=== PATIENT | female | born 1945 | race Caucasian/White ===

== ENCOUNTER → 2020-05-02 15:33 | Outpatient (REF) | payer MEDICARE, SELFPAY | LOC: ANHLAB 15:33 | PROVIDERS: Visit Provider Nurse Practitioner | DX: C44.722 Squamous cell carcinoma of skin of right lower limb, including hip (principal) | CPT/HCPCS: 88305 ==

== ENCOUNTER → 2020-05-29 08:35 | Outpatient (REF) | payer MEDICARE, SELFPAY | LOC: ANHLAB 08:35 | PROVIDERS: Visit Provider Nurse Practitioner | DX: C44.722 Squamous cell carcinoma of skin of right lower limb, including hip (principal) | CPT/HCPCS: 88305; 88331 ==

== ENCOUNTER → 2021-03-27 13:12 | Outpatient (REF) | payer MEDICARE, SELFPAY | LOC: ANHLAB 13:12 | PROVIDERS: Visit Provider Nurse Practitioner | DX: D49.2 Neoplasm of unspecified behavior of bone, soft tissue, and skin (principal) | CPT/HCPCS: 88305 ==

== ENCOUNTER 2023-09-15 07:00 | Outpatient (NON) | payer MEDICARE, SELFPAY | END 2023-09-15 07:01 | disposition home or self-care (01) | LOC: ANHLAB 09-17 14:30 | PROVIDERS: Visit Provider Nurse Practitioner | DX: C44.622 Squamous cell carcinoma of skin of right upper limb, including shoulder (principal); L81.4 Other melanin hyperpigmentation | CPT/HCPCS: 88305 ==

== ENCOUNTER 2025-07-11 11:30 | Outpatient (NON) | payer MEDICARE, SELFPAY ==
--- NOTE | 2025-07-11 | S_PTH ---
PATIENT: Larissa Arguelles LOC: [facility] U#:[id number] AGE/SX: 79/F ROOM: RE07/11/[address]: David Arguelles MD : 1945 BED: DIS: 07/11/2025 SPEC #: [id number] RECD: 07/11/25 11:43 STATUS: ANGELA REQ #: [id number] IRENA: 07/11/25 00:[address]: David Arguelles DEPT: [facility] Surgical RECD BY: Maggi Omalley Tissues: A - Melanoma Procedures: Hematoxylin and Eosin Stain Gross and Microscopic Level 4
--- OUTSIDE RECORDS SUMMARY | 2025-07-11 13:05 | XMS_ITS | Clinical Summary ---
Author Organization [facility] Address [address] [place] [address] Care Team Providers Care Tying In Machine Operator Name Role Phone Unavailable Primary Care Provider Unavailabl e Social History Tobacco Use Types Packs/Day Years Used Date Smoking Tobacco: Never Assessed Comments Unknown Sex and Gender Information Value Date Recorded Sex Assigned at Not on file Legal Sex Female 4:42 PM CDT Gender Identity Not on file Sexual Orientation Not on file Plan of Treatment Health Maintenance Due Date Last Done Comments Hepatitis C 1963 DTaP, Tdap and Td Vaccines ( 1 - Tdap) 1964 Pneumococcal Vaccine: 50+ Ye ars (1 of 1 - PCV) 1995 Zoster Vaccines (1 of 2) 1995 Dexa Scan (General) 2010 RSV Immunization or 60+ Years (1 - 1-dose 75+ series) 2020 COVID-19 Vaccine (2024-2 6 season) 2025 Influenza Adult (#1) 2025 Hepatitis A Vaccines Aged Out No long er eligible based on patient's age to complete this topic Meningococcal B Vaccine Aged Out No l onger eligible based on patient's age to complete this topic Meningococcal Vaccine Aged Out No krish vadim eligible based on patient's age to complete this topic RSV Immunizations Under 20 Months Aged Out No longer eligible based on patient's age to complete this topic
--- OUTSIDE RECORDS SUMMARY | 2025-07-11 13:05 | XMS_ITS | Clinical Summary ---
Author Organization [facility] Address [address] [place] [address] Care Team Providers Care Clinical Education Coordinator Name Role Phone aNdirDavid christiansen MD Primary Care Provider [phone] Darryl Guerra MD Unavailable [phone] Betsy Delgado MD Unavailable [phone] Allergies Active Allergy Reactions Criticality Noted Date Comments Metronidazole Itching Low 04/29/2018 Other Other (See comments) Low 11/09/2018 Pt states does she does not tolerate steroids - causes bloating, swelling and stiffness Prednisone Joint pain Low 03/02/2020 Medications letrozole (FEMARA) 2.5 mg tabletIndication s:estrogen veronica Take 2.5 mg by mouth every morning 5 08/24/[address] (NexIUM) 40 mg capsuleIndicatio ns:Stress Ulcer Prophylaxis Take 40 mg by mouth every morning Active Lactobac no.41/Bifidobact no.7 (PROBIOTIC-10 ORAL) Take 1 capsule by mouth every morning Active lisinopril-hydro CHLOROthiazide (ZESTORETIC) 20-25 mg per tabletIndication s:hypertension Take 1 tablet by mouth nightly 05/24/2019 Active rosuvastatin (CRESTOR) 5 mg tablet Take 5 mg by mouth daily 09/25/2021 Active Active Problems Problem Noted Date Diagnosed Date Adenoma of colon 11/10/2018 Overview (11/10/2018): Added automatically from request for surgery [id number] Benign colon polyp 09/14/2018 Overview (09/14/2018): Added automatically from request for surgery [id number] Acute postoperative pain of abdomen S/P laparoscopic colectomy Resolved Problems Problem Noted Date Diagnosed Date Resolved Date Incisional hernia, without o bstruction or gangrene 06/05/2020 12/08/2021 Overview (06/05/2020): Added automatically from request for surgery [id number] Surgical History Surgery Date Site/Laterality Comments CHOLECYSTECTOMY 09/08/2014 - 09/07/2015 laparoscopically COLONOSCOPY 09/08/2017 - 09/07/2018 unamenable endoscopic mucosal resection (x2) SKIN CANCER EXCISION HYSTERECTOMY 09/08/2004 - 09/07/2005 BLADDER SUSPENSION 09/08/2004 - 09/07/2005 MASTECTOMY, PARTIAL 09/08/2014 - 09/07/2015 Right partial COLON SURGERY 09/08/2018 - 09/07/2019 Lap FACIAL COSMETIC SURGERY 09/08/2012 - 09/07/2013 HERNIA REPAIR 09/2017; 01/2018 ventral w/ mesh APPENDECTOMY 12/07/2018 - 01/05/2019 INCISIONAL HERNIA REPAIR 07/25/2020 Robotic repair Medical History Medical History Date Comments Breast cancer, right (HCC) 2014 s/p p artial mastectomy, xrt; continues letrozole HTN (hypertension) GERD (gastroesophageal reflux disease) Dyslipidemia History of colon polyps History of therapeutic radiation 12/2014 Tubular adenoma of the ileocecal valve Diverticulosis SCCA (squamous cell carcinoma) of skin Basal cell carcinoma (BCC) Atherosclerosis 04/29/2018 of aorta, mod to severe (CT abd/pelvis- OSH- 04/29/18) Colorectal polyps Recurrent incisional hernia Family History Medical History Relation Name Comments Colon polyps Brother Colon cancer Father's Sister Heart attack Mother fatal- pt state s it was r/t an infection Relation Name Status Comments Brother Father's Sister Mother Social History Tobacco Use Types Packs/Day Years Used Date Smoking Tobacco: Former Cigarettes 1 48 1 964 - 2012 Smokeless Tobacco: Never Alcohol Use Standard Drinks/Week Comments Yes 8 (1 standard drink = 0.6 oz pur e alcohol) Comments No Sex and Gender Information Value Date Recorded Sex Assigned at Not on file Legal Sex Female 2:59 AM DRAWER IN JACQUARD LOOM Gender Identity Not on file Sexual Orientation Not on file Last Filed Vital Signs Vital Sign Reading Time Taken Comments Blood Pressure 143/83 09/15/2020 11:00 AM DRAWER IN JACQUARD LOOM Pulse 67 09/15/2020 11:00 AM DRAWER IN JACQUARD LOOM Temperature 35.6 C (96.1 F) 09/15/2020 11:00 AM DRAWER IN JACQUARD LOOM Respiratory Rate 16 07/27/2020 3:11 PM DRAWER IN JACQUARD LOOM Oxygen Saturation 94% 07/27/2020 3:11 PM DRAWER IN JACQUARD LOOM Inhaled Oxygen Concentration - - Weight 69 kg (152 lb 3.2 oz) 09/15/2020 11:00 AM DRAWER IN JACQUARD LOOM Height 154.9 cm (5' 1) 09/15/2020 11:00 AM DRAWER IN JACQUARD LOOM Body Mass Index 28.76 09/15/2020 11:00 AM DRAWER IN JACQUARD LOOM Plan of Treatment Not on file Medical Devices Implanted Type Area Supervisor Paper Products Device Identifier Shelf Expiration Date Model / Serial / Lot [employer]/C R Bard [id number] Ventralight St Sepra Echo Ps 8x6in Monofilament Absorbable Low Latex Free - [id number] Implanted:Qty: 1 on 07/25/2020 by Ellis Sparks MD at [facility] Mesh N/A: Abdomen [employer]/C R Bard 03/05/2022 [id number] / / [id number] Tooth Mouth Insurance [facility] MEDICARE ADVANTAGE [facility] MEDIC[facility] Address: [address] [address] [place] [address] [facility] MEDICARE ADVANTAGE [facility]IC[facility] Address: [address] [address] [place] [address] Advance Directives For more information, please contact: [phone] * Full Code (Latest Code Status on File) Date Activated Date Inactivated Comments 07/25/2020 12:49 PM 07/27/2020 8:38 PM * Full Code Date Activated Date Inactivated Comments 12/10/2018 9:13 PM 12/12/2018 4:43 PM * Full Code Date Activated Date Inactivated Comments 10/01/2018 8:14 AM 10/01/2018 2:53 PM Care Teams Clinical Education Coordinator Relationship Specialty Start Date End Date David Arguelles MD [address] [place] [address] [address] [place] [address] PCP - General Plastic Surgery 01/08/19 Darryl Guerra MD [address] [place] [address] [place] [address] [place] [address] Referring Physician Gastroenterology 01/08/19 Betsy Delgado MD [address] [place] [address] [place] [address] [place] [address] Cloth Pattern Maker Gastroenterology 01/08/19
--- OUTSIDE RECORDS SUMMARY | 2025-07-11 13:05 | XMS_ITS | Encounter Summary ---
Author Organization [facility] Address [address] [place] [address] Care Team Providers Care Nut Grader Name Role Phone Ovidio Rosas MD Primary Care Provider [phone] Encounter Details Date Type Department Care Team (Late st Contact Info) Description 06/20/2025 Results Follow-Up [facility] [address] [place] [address] [place] [address] Jasmyn Andre LPN MAMMO SCREENING BILATERAL - DIGITAL W MG Social History Tobacco Use Types Packs/Day Years Used Date Smoking Tobacco: Former Cigarettes 0 Q uit: 2014 Passive Smoke Exposure: Past Smokeless Tobacco: Never Alcohol Use Standard Drinks/Week Comments Never 0 (1 standard drink = 0.6 oz pur e alcohol) [facility] Utilities Answer Date Recorded In the past 12 months has e [employer], gas, oil, or water [employer] threatened to shut off services in your home? No 08/17/2024 Humiliation, Afraid, Rape, and Kick questionnair e Answer Date Recorded Within the last year, have y ou been afraid of your partner or ex-partner? No 08/17/2024 Within the last year, have y ou been humiliated or emotionally abused in other ways by your partner or ex-partner? No Within the last year, have y ou been kicked, hit, slapped, or otherwise physically hurt by your partner or ex-partner? No 08/17/2024 Within the last year, have y ou been raped or forced to have any kind of sexual activity by your partner or ex-partner? No 08/17/2024 Hunger Vital Sign Answer Date Recorded Within the past 12 months, y ou worried that your food would run out before you got the money to buy more. Never true 08/17/20 24 Within the past 12 months, t he food you bought just didn't last and you didn't have money to get more. Never true 08/17/2024 PRAPARE - Transportation Answer Date Re corded In the past 12 months, has l ack of transportation kept you from medical appointments or from getting medications? No 08/08 In the past 12 months, has l ack of transportation kept you from meetings, work, or from getting things needed for daily living? No 08/17/2024 Housing Stability Vital Sign Answer Ehrber e Recorded In the last 12 months, was t here a time when you were not able to pay the mortgage or rent on time? No 08/17/2024 Number of Times Moved in the Last Year Not on fi le 08/17/2024 At any time in the past 12 m [facility], were you homeless or living in a skilled nursing (including now)? No 08/17/2024 Alcohol Use Answer Date Recorded Frequency of Alcohol Consumption Not on file 05/19/2024 Average Number of Drinks Not on file 024 Frequency of Binge Drinking Not on file 05/09 Alcohol Use Status Never 05/19/2024 Average alcohol consumption Not on file 05/09 Comments No Sex and Gender Information Value Date Recorded Sex Assigned at Female 08/31/2024 2:54 PM SUPERVISOR SALVAGE Legal Sex Female 9:20 AM CDT Gender Identity Female 08/31/2024 2:54 PM SUPERVISOR SALVAGE Sexual Orientation Not on file documented as of this encounter Functional Status * Are you deaf or do you have serious difficulty hearing? Answer Date of Assessment Author No 08/17/2024 12:57 PM Patricia Wilkins RN * Are you blind or do you have serious difficulty seeing, even when wearing glasses? Answer Date of Assessment Author No 08/17/2024 12:57 PM Patricia Wilkins RN * Do you have serious difficulty walking or climbing stairs? Answer Date of Assessment Author No 08/17/2024 12:57 PM Ptaricia Wilkins RN * Do you have difficulty dressing or bathing? Answer Date of Assessment Author No 08/17/2024 12:57 PM Patricia Wilkins RN * Because of a physical, mental, or emotional condition, do you have difficulty doing errands alone such as visiting a doctor's office or shopping? Answer Date of Assessment Author No 08/17/2024 12:57 PM Patricia Wilkins RN documented as of this encounter Mental Status * Because of a physical, mental, or emotional condition, do you have serious difficulty concentrating, remembering, or making decisions? Answer Entry Date Author No 08/17/2024 12:57 PM Patricia Wilkins RN documented in this encounter Plan of Treatment Upcoming Encounters Date Type Department Care Team (Late st Contact Info) Description 08/10/2025 2:30 PM SUPERVISOR SALVAGE Office Visit [address] [address] Ovidio Rosas MD [address] [place] [address] documented as of this encounter Visit Diagnoses Not on filedocumented in this encounter Care Teams Nut Grader Relationship Specialty Start Date End Date Ovidio Rosas MD [address] [place] [address] PCP - General Family Medicine 06/04/24 documented as of this encounter
--- OUTSIDE RECORDS SUMMARY | 2025-07-11 13:05 | XMS_ITS | Encounter Summary ---
Author Organization [facility]. Address [facility] [facility] [place] [address] Care Team Providers Care Ladle Pourer Name Role Phone Non Staff, Physician Primary Care Provider Unava ilable Reason for Referral * Radiology Services (Routine) - Closed Specialty Diagnoses / Procedures Referred By Tuyet t Referred To Contact Radiology Diagnoses Malignant neoplasm of breast (female), unspecified site Procedures NM L[place]MPHOSCINT [place] [address] Phone: tel: fax: [address] [place] [address] Phone: tel: Referral ID Status Reason Start Date Expiration Date Visits Re quested Visits Authorized [id number] Closed 11/01/2014 11/01/2015 1 1 Encounter Details Date Type Department Care Team (Late st Contact Info) Description 11/01/2014 Transcribe Orders Outpatient Scheduling [place] [address] Dina Holly, Pipe Smoking Machine Operator Malignant neoplasm of breast (female), unspecified site (Primary Dx) Social History Tobacco Use Types Packs/Day Years Used Date Smoking Tobacco: Former Cigarettes 1 30 0 10/28/1976 - 10/28/2006 Alcohol Use Standard Drinks/Week Comments Yes 0 (1 standard drink = 0.6 oz pur e alcohol) glass wine nightly Comments Unknown Sex and Gender Information Value Date Recorded Sex Assigned at Not on file Legal Sex Female 3:52 PM EDT Gender Identity Not on file Sexual Orientation Not on file documented as of this encounter Functional Status * Is the patient deaf or have serious difficulty hearing? Answer Date of Assessment Author No 10/28/2014 11:29 AM EST Josie WoodrowCori D * Is the patient blind or have serious difficulty seeing even when wearing glasses? Answer Date of Assessment Author No 10/28/2014 11:29 AM EST Josie Cori D * Does the patient have serious difficulty concentrating, remembering, or making decisions? Answer Date of Assessment Author No 10/28/2014 11:29 AM EST Zoie Galindoe D * Does the patient have serious difficulty walking or climbing stairs? Answer Date of Assessment Author No 10/28/2014 11:29 AM EST Zoie Galindoe D * Does the patient have difficulty dressing or bathing? Answer Date of Assessment Author No 10/28/2014 11:29 AM EST Josie Cori D documented as of this encounter Mental Status * Does the patient have difficulty doing errands alone? Answer Entry Date Author No 10/28/2014 11:29 AM Cori Baker documented in this encounter Plan of Treatment Not on file documented as of this encounter Results * NM LYMPHOSCINT WITHOUT IMAGING (11/03/2014 11:09 AM EST) Anatomical Region Laterality Modality Nuclear Medicine 11/03/2014 11:0 9 AM EST Narrative 11/03/2014 1:09 PM EST Order Number: [id number] Ordering Provider: AYANNA LOWE Date of Exam: Nov 03 2014 11:09AM COMMENTS: EXAMINATION: LYMPHOSCINT W/O IMAGING CLINICAL HISTORY: Breast carcinoma. TECHNIQUE: Right breast lymphoscintigraphy. RESULTS: 500 microcuries of technetium-99m filtered sulfur colloid injected into the right breast by Dr. Lowe. No images were obtained. IMPRESSION: Right breast lymphoscintigraphy performed without imaging. Name: NEREIDA ARGUELLES MR#: [id number] : 1945 Sex: F Dictating Physician: JOHN SIMEON MD Electronically Signed: Nov 03 2014 1:07PM Dictated: Nov 03 2014 11:09AM Transcribed: Q23 on Nov 03 2014 11:40AM us Ayanna SAPP ORDERABLES Final Result documented in this encounter Visit Diagnoses Diagnosis Malignant neoplasm of breast (female), unspecified site- Primary Malignant neoplasm of breast (female), unspecified site documented in this encounter Care Teams Ladle Pourer Relationship Specialty Start Date End Date Non Staff, Physician PCP - General 09/22/09 documented as of this encounter
--- OUTSIDE RECORDS SUMMARY | 2025-07-11 13:05 | XMS_ITS | Clinical Summary ---
Author Organization [facility]. Address [address] [facility] [place] [address] Care Team Providers Care Pump Servicer Name Role Phone Non Staff, Physician Primary Care Provider Unava ilable Allergies No known active allergies Medications alendronate (FOSAMAX) 70 MG tablet Take 70 mg by mouth once a week. Take 30 minutes before first food/drink/m edication, avoid lying down for 30 minutes Active esomeprazole (NEXIUM) 40 MG capsule Take 40 mg by mouth daily. Active atorvastatin (LIPITOR) 10 MG tablet Take 10 mg by mouth daily. Active losartan-hydroc hlorothiazide (HYZAAR) 100-12.5 MG per tablet Take 1 Tab by mouth daily. Active difluprednate (DUREZOL) 0.05 % Emulsion 1 Drop 4 times daily. To right eye Active hydrocodone-blaise taminophen (NORCO, LORTAB, VICODIN) 5-325 MG per tablet Take 1-2 Tabs by mouth every 6 hours as needed for Pain. 30 Tab 0 11/03/2014 Active Active Problems Problem Noted Date Diagnosed Date Malignant neoplasm of breast (female), unspecifi ed site 11/03/2014 Overview (03/26/2015): March 2015 IMO Update Social History Tobacco Use Types Packs/Day Years [...] Sign Reading Time Taken Comments Blood Pressure 153/65 11/03/2014 1:45 PM EST Pulse 55 11/03/2014 1:45 PM EST Temperature 36.2 C (97.1 F) 11/03/2014 12:01 PM EST Respiratory Rate 14 11/03/2014 1:45 PM EST Oxygen Saturation 99% 11/03/2014 1:45 PM EST Inhaled Oxygen Concentration - - Weight 62.6 kg (138 lb 0.1 oz) 11/03/2014 8:01 A M EST Height 156.2 cm (5' 1.5) 10/28/2014 11:31 AM ES T Body Mass Index 25.65 10/28/2014 11:31 AM EST Plan of Treatment Health Maintenance Due Date Last Done Comments HEP C 1963 MEDICARE WELLNESS EXAM 1963 PNEUMOCOCCAL (50y+) (1 of 1 - PCV) 1995 ZOSTER (SHINGLES) (1 of 2) 1995 DEXA SCREENING 2010 TETANUS/DIPHTHERIA 2010 RSV Immunization - age 60 ye ars and older or (1 - 1-dose 75+ series) 2020 INFLUENZA (#1) 2025 COVID-19 Vaccine ( - 2023-2 5 season) 2025 HEP B Aged Out No longer eligi ble based on patient's age to complete this topic MEN B Vaccine Aged Out No longer elig ible based on patient's age to complete this topic RSV Immunization < 20 months Aged Out No longer eligible based on patient's age to complete this topic Insurance [facility] [place] [place] [address] Care Teams Pump Servicer Relationship Specialty Start Date End Date Non Staff, Physician PCP - General 09/22/09
--- OUTSIDE RECORDS SUMMARY | 2025-07-11 13:05 | XMS_ITS | Encounter Summary ---
Author Organization [facility]. Address [address] [facility] [place] [address] Care Team Providers Care Business Process Analyst Name Role Phone Non Staff, Physician Primary Care Provider Unava ilable Reason for Referral * Breast Health Services (Routine) - Closed Specialty Diagnoses / Procedures Referred By Contac t Referred To Contact Diagnoses Malignant neoplasm of breast (female), unspecified site Procedures MA MAMMO US GUIDED LOC W/DEVICE [facility] [address] [place] [address] Phone: tel: fax: Referral ID Status Reason Start Date Expiration Date Visits Re quested Visits Authorized [id number] Closed 11/02/2014 11/02/2015 1 1 Encounter Details Date Type Department Care Team (Late st Contact Info) Description 11/02/2014 Transcribe Orders [facility] [place] [address] Marilee Lowe M.D. [id number] [place] [id number] Malignant neoplasm of breast (female), unspecified site [...] of Assessment Author No 10/28/2014 11:29 AM Cori Baker * Is the patient blind or have serious difficulty seeing even when wearing glasses? Answer Date of Assessment Author No 10/28/2014 11:29 AM Cori Baker * Does the patient have serious difficulty concentrating, remembering, or making decisions? Answer Date of Assessment Author No 10/28/2014 11:29 AM Cori Baker * Does the patient have serious difficulty walking or climbing stairs? Answer Date of Assessment Author No 10/28/2014 11:29 AM Cori Baker * Does the patient have difficulty dressing or bathing? Answer Date of Assessment Author No 10/28/2014 11:29 AM Cori Baker documented as of this encounter Mental Status * Does the patient have difficulty doing errands alone? Answer Entry Date Author No 10/28/2014 11:29 AM Cori Baker documented in this encounter Plan of Treatment Not on file documented as of this encounter Visit Diagnoses Diagnosis Malignant neoplasm of breast (female), unspecified site- Primary documented in this encounter Care Teams Business Process Analyst Relationship Specialty Start Date End Date Non Staff, Physician PCP - General 09/22/09 documented as of this encounter
--- OUTSIDE RECORDS SUMMARY | 2025-07-11 13:05 | XMS_ITS | Clinical Summary ---
Author Organization [facility] Address [address] [place] [address] Care Team Providers Care Decay Control Operator Name Role Phone Ovidio Rosas MD Primary Care Provider [phone] Allergies Active Allergy Reactions Criticality Noted Date Comments Atorvastatin Other/Unknown (See Comments) 12/04/2020 Leg pain Metronidazole Other/Unknown (See Comments) 04/29/2018 Prednisone Arthralgia Low 03/02/2020 Swelling, bloating Medications albuterol (PROAIR HFA) 108 (90 Base) MCG/ACT inhaler Inhale 2 puffs by mouth every 6 (six) hours if needed for Wheezing Active Multiple Vitamins-Minerals (WOMENS MULTI PO) Take Ac tive Probiotic Product (PROBIOTIC DAILY PO) Take 1 tablet by mouth daily Active fluticasone-umecl idin-vilant (TRELEGY ELLIPTA) 200-62.5-25 MCG/ACT inhalerIndication s:Chronic allergic bronchitis Inhale 1 puff by mouth daily 90 each 3 12/10/19 25 026 Active lisinopril-hydroc hlorothiazide (PRINZIDE, ZESTORETIC) 20-25 MG per tabletIndications :Essential (primary) hypertension Take 1 tablet by mouth daily 90 tablet 3 12/16/19 25 026 Active esomeprazole (NEXIUM) 40 MG capsuleIndication s:Gastroesophagea l reflux disease, unspecified whether esophagitis present Take 1 capsule (40 mg) by mouth every morning (before breakfast) 90 capsule 1 04/18/20 25 026 Active tirzepatide (MOUNJARO) 2.5 MG/0.5ML penIndications:Pr ediabetes,Impaire d fasting blood sugar Inject 0.5 mL (2.5 mg) into the skin once a week for 30 days 2 mL 06/15/20 25 025 Active rosuvastatin (CRESTOR) 5 MG tabletIndications :Mixed Hyperlipidemia Take 1 tablet (5 mg) by mouth at bedtime Indications: Elevation of Both Cholesterol and Triglycerides in Blood 90 tablet 3 07/08/20 24 025 tirzepatide (MOUNJARO) 2.5 MG/0.5ML penIndications:Pr ediabetes,Impaire d fasting blood sugar Inject 0.5 mL (2.5 mg) into the skin once a week 2 mL 2 03/30/20 25 025 Discontin ued(Reord er) diclofenac (VOLTAREN) 75 MG EC tabletIndications :Acute pain of left shoulder Take 1 tablet (75 mg) by mouth 2 times daily for 14 days 28 tablet 06/02/20 25 025 Active Problems Problem Noted Date Diagnosed Date Angina pectoris 08/17/2024 Benign essential hypertension 05/19/2024 GERD (gastroesophageal reflux disease) 4 PAD (peripheral artery disease) 05/19/2024 Resolved Problems Problem Noted Date Diagnosed Date Resolved Date Soft tissue fullness of cheeks 02/01/2025 03/15/2025 Angina pectoris 07/28/2024 08/09/2024 Chronic bronchitis 05/19/2024 4 Viral syndrome 05/19/2024 05/19/2024 Exertional dyspnea 05/19/2024 4 Atypical chest pain 05/19/2024 07/05/20 24 Lower extremity edema 05/19/20242023 Hx of tobacco use, presentin g hazards to health 05/19/2024 08/09/2024 Encounters Date Type Department Care Team Description 06/20/2025 11:24 AM CDT - 06/20/2025 11:59 PM CDT Hospital Encounter [facility] [address] [place] [phone] Ovidio Rosas MD Encounter for screening mammogram for malignant neoplasm of breast Discharge Disposition: Home 06/20/2025 Results Follow-Up [address] [phone] Jasmyn Andre LPN MAMMO SCREENING BILATERAL - DIGITAL W MG 06/15/2025 1:15 PM CDT Office Visit [address] [phone] Ovidio Rosas MD Acute pain of left shoulder (Primary Dx); BMI 30.0-30.9,adult; Prediabetes; Impaired fasting blood sugar 06/08/[address] [phone] Ovidio Rosas MD Other 06/02/2025 11:00 AM CDT Office Visit [address] [phone] Mukund Coats NP Acute pain of left shoulder (Primary Dx) 04/18/[address] [phone] Ovidio Rosas MD Medication Refill 04/18/[address] [phone] Ovidio Rosas MD Medication Refill from Last 3 Months Immunizations Immunization Administration Dates Next Due Covid-19, Moderna, 12+, LNP-S, PF 50 mcg/0.5mL 0 10/25/2020,09/27/2020 Influenza =>65yo, High Dose, Preservative Free 1 Influenza =>65yo, High Dose, Quadrivalent 2020,07/04/2020 Influenza, Trivalent (IIV3-HD) Adjuv, Pres Free 08/27/2018 Pneumococcal Polysaccharide PPV23 09/18/2021 Tdap 08/08/2021,08/22/2020 pneumococcal Conjugate PCV13 07/15/2020 Family History Medical History Relation Name Comments Heart Disease Father Hypertension Father Breast Cancer Maternal Aunt Breast Cancer Maternal Grandmother Breast Cancer Mother Breast Cancer Sister 1 Hypertension Sister 1 Other (See Comments) Sister 1 Sarcoid osis Breast Cancer Sister 2 Relation Name Status Comments Father Maternal Aunt Maternal Grandmother Mother Sister 1 Sister 2 Alive Social History Tobacco Use Types Packs/Day Years Used Date Smoking Tobacco: Former Cigarettes 0 Q uit: 2013 Passive Smoke Exposure: Past Smokeless Tobacco: Never Tobacco Cessation:Counseling Given: Yes Alcohol Use Standard Drinks/Week Comments Never 0 (1 standard drink = 0.6 oz pur e alcohol) [facility] [employer] [place] [employer] Answer Date Recorded In the past 12 months has e [employer], gas, oil, or water [employer] threatened to shut off services in your [...] No 08/17/2024 Housing Stability Vital Sign Answer [place] e Recorded In the last 12 months, was t here a time when you were not able to pay the mortgage or rent on time? No 08/17/2024 Number of Times Moved in the Last Year Not on fi le 08/17/2024 At any time in the past 12 m [facility], were you homeless or living in a penitentiary (including now)? No 08/17/2024 Alcohol Use Answer Date Recorded Frequency of Alcohol Consumption Not on file 05/19/2024 Average Number of Drinks Not on file 024 Frequency of Binge Drinking Not on file 05/09 Alcohol Use Status Never 05/19/2024 Average alcohol consumption Not on file 05/09 Comments No Sex and Gender Information Value Date Recorded Sex Assigned at Female 08/31/2024 2:54 PM MACHINING TECHNICIAN Legal Sex Female 9:20 AM CDT Gender Identity Female 08/31/2024 2:54 PM MACHINING TECHNICIAN Sexual Orientation Not on file Last Filed Vital Signs Vital Sign Reading Time Taken Comments Blood Pressure 138/72 06/15/2025 1:05 PM CDT Pulse 67 06/15/2025 1:05 PM CDT Temperature 36.3 C (97.4 F) 08/27/2024 7:34 PM MACHINING TECHNICIAN Respiratory Rate 16 06/15/2025 1:05 PM CDT Oxygen Saturation 98% 06/15/2025 1:05 PM CDT Inhaled Oxygen Concentration - - Weight 72.6 kg (160 lb) 06/15/2025 1:05 PM CDT Height 154.9 cm (5' 1) 06/15/2025 1:05 PM CDT Body Mass Index 30.23 06/15/2025 1:05 PM CDT Plan of Treatment Upcoming Encounters Date Type Department Care Team (Late st Contact Info) Description 08/10/2025 2:30 PM MACHINING TECHNICIAN Office Visit [address] [place] [address] [place] [phone] Ovidio Rosas MD [address] [place] [address] [place] [address] Health Maintenance Due Date Last Done Comments Hepatitis C Screening ages 18 to 79 once 1945 DEPRESSION SCREENING 1957 Zoster Vaccine (Recombinant Vaccine) (1 of 2) 1995 RSV Vaccines (1 - 1-dose 75+ series) 2020 Influenza Vaccine 04/08/2025 07/19/2021, , 06/21/2019, Additional history exists LIPID TESTING 06/04/2025 06/04/2024 Medicare Annual Wellness (AWV) 08/09/2025 08/09/2024 BMI Above/Below Normal Parameters 06/15/2026 06/15/2025, 06/15/2025, 06/02/2025, Additional history exists Fall Risk Assessment 06/15/2026 06/15/2025, 03/15/2025, 09/27/2024, Additional history exists BREAST CANCER SCREENING 06/20/2026 06/20/20, 06/15/2024, 06/05/2023, Additional history exists ADULT TETANUS 08/08/2031 08/08/2021, 08/22/2020 DEXA SCAN SCREENING Completed 06/08/2019 COVID-19 Immunization Discontinued 10/25/2020, 021 Pneumococcal Vaccine: 50 and over Completed 09/18/2021, 07/15/2020 HEPATITIS A VACCINES Aged Out No long er eligible based on patient's age to complete this topic HEPATITIS B VACCINES Aged Out No long er eligible based on patient's age to complete this topic HIB VACCINES Aged Out No longer eligi ble based on patient's age to complete this topic HPV VACCINES Aged Out No longer eligi ble based on patient's age to complete this topic IPV VACCINES Aged Out No longer eligi ble based on patient's age to complete this topic MENINGOCOCCAL VACCINE Aged Out No krish vadim eligible based on patient's age to complete this topic Meningococcal B Vaccine Aged Out No l onger eligible based on patient's age to complete this topic ROTAVIRUS VACCINES Aged Out No longer eligible based on patient's age to complete this topic Procedures Procedure Name Priority Date/Time Associated Diagnosis Comments MAMMO SCREENING BILATERAL - DIGITAL W MG Routine 06/20/2025 12:08 PM CDT Encounter for screening mammogram for malignant neoplasm of breast LIPID PROFILE Routine 06/04/2024 2:09 PM CDT Anemia of infection and chronic disease Hypertension, unspecified type from Last 3 Months or Most Recently Relevant to Health Maintenance Results * MAMMO SCREENING BILATERAL - DIGITAL W MG (06/20/2025 12:08 PM CDT) Anatomical Region Laterality Modality Breast Bilateral Mammography 06/20/2025 11:4 0 AM CDT Impressions 06/20/2025 3:42 PM CDT IMPRESSION: Screening mammography negative for suspicious abnormality. ACR BI-RADS- 2 - Benign findings. RECOMMENDATION: In the absence of physical exam or breast symptomatology warranting earlier evaluation, advise continued annual screening mammography with next exam in 12 months. Electronically signed by: Ebenezer Luis MD 06/20/2025 03:42 PM CDT RP Narrative 06/20/2025 3:42 PM CDT BILATERAL FULL-FIELD DIGITAL SCREENING MAMMOGRAPHY WITH COMPUTER AIDED DETECTION CLINICAL HISTORY: 79-year-old with personal history of breast cancer presents without complaint for screening mammogram. COMPARISON: June 15, 2024 and earlier. [employer] Mult[employer] Version 7.2 was used as an aid in the interpretation of this mammogram. Breast Composition: There are scattered areas of fibroglandular density. FINDINGS: No discernible suspicious mass, suspicious-morphology calcifications, or architectural distortion. Surgical clips and an oil cyst in the right breast. Benign appearing calcifications bilaterally. Allowing for differences in technique and positioning, there are no suspicious interval changes by routine screening mammographic technique. Procedure Note Ebenezer Luis MD - 06/20/2025 BILATERAL FULL-FIELD DIGITAL SCREENING MAMMOGRAPHY WITH COMPUTER AIDEDDETECTION CLINICAL HISTORY: 79-year-old with personal history of breast cancerpresents without complaint for screening mammogram. COMPARISON: June 15, 2024 and earlier. [employer] Mult[employer] Version 7.2 was used as an aid in the interpretation ofthis mammogram. Breast Composition: There are scattered areas of fibroglandular density. FINDINGS: No discernible suspicious mass, suspicious-morphologycalcifications, or architectural distortion. Surgical clips and an oil cyst in the rightbreast. Benign appearing calcifications bilaterally. Allowing for differences in technique andpositioning, there are no suspicious interval changes by routine screening mammographictechnique. IMPRESSION: Screening mammography negative for suspicious abnormality. ACR BI-RADS- 2 - Benign findings. RECOMMENDATION: In the absence of physical exam or breast symptomatologywarranting earlier evaluation, advise continued annual screening mammography with next examin 12 months. Electronically signed by: Ebenezer Luis MD 06/20/2025 03:42 PM CDT RPWorkstation: [id number] Ovidio Rosas MD [facility] IM MAMMO ORDERABLES Final Result * (ABNORMAL) LIPID PROFILE (06/04/2024 2:09 PM CDT) Cholesterol 169 MG/DL [facility] Comment: (NOTE) -Cholesterol- < 200 mg/dL Desirable 200-239 mg/dL Borderline High >=240 mg/dL High Triglycerides 218 MG/DL [facility] Comment: (NOTE) -Triglyceride- < 150 mg/dl Normal 150-199 mg/dL Borderline High 200-499 mg/dL High >500 mg/dl Very high HDL 61 MG/DL [facility] Comment: (NOTE) -HDL- Major risk factor for heart disease < 40mg/dL Negative risk factor for heart diseas >=60mg/dL LDL Cholesterol 64 <130 MG/DL [facility] Comment: (NOTE) -LDL- < 100 mg/dl Optimal 100-129 mg/dL Near Optimal 130-159 mg/dL Borderline High 160-189 mg/dL High > 190 mg/dl Very High LDL/HDL Ratio 1.05 [facility] VLDL, Calc 44(H) 5 - 40 MG/DL [facility] LDL, High Risk 2.8 0.0 - 3.4 [facility] Blood 06/04/2024 2:09 PM CDT 06/04/2024 2:22 PM CDT Ovidio Rosas MD CHEMISTRY ORDERABLES Final Resu lt [facility] [address] [place] [address], [facility] [phone] from Last 3 Months or Most Recently Relevant to Health Maintenance Insurance [employer] MEDICARE Advance Directives * Full Code (Latest Code Status on File) Date Activated Date Inactivated Comments 08/17/2024 7:19 AM 08/17/2024 4:07 PM Care Teams Decay Control Operator Relationship Specialty Start Date End Date Ovidio Rosas MD [address] [place] [address] [address] [address] PCP - General Family Medicine 06/04/24
== END 2025-07-11 11:31 | disposition home or self-care (01) ==
LOC: ANHLAB 11:32
PROVIDERS: Visit Provider Surgery Plastic and Reconstructive Surgery
DX: D03.9 Melanoma in situ, unspecified (principal)
CPT/HCPCS: 88305